=== PATIENT | female | born 1960 | race Two or more races ===

== ENCOUNTER 2017-01-09 21:30 | Inpatient (IN) | payer MEDICAID ==
[~2017-01-09] VITALS: Ht 157.5 cm; Wt 66.7 kg
[2017-01-09] MEDS ORDERED: NITROGLYCERIN 0.4MG TABLET SL SL PRN (23:30)
[2017-01-09 23:38] LABS: BASOPHILS % 1.1 % (0.0-2.0); EOSINOPHILS % 3.7 % (0.0-5.0); HEMOGLOBIN. 15.5 g/dL (12.0-16.0); LYMPHOCYTES % 33.5 % (20.0-50.0); MEAN CORPUSCULAR HEMOGLOBIN 30.4 pg (28.0-32.0); MEAN CORPUSCULAR VOLUME 88.3 fL (81.0-99.0); MEAN PLATELET VOLUME 7.5 fl (7.4-10.4); MONOCYTES % 7.2 % (2.0-8.0); NEUTROPHILS % 54.5 % (40.0-76.0); PLATELET 223 x1000/uL (130-400); RED CELL DISTRIBUTION WIDTH 13.3 % (11.6-14.6)
[2017-01-09 23:53] LABS: CARBON DIOXIDE 27 mEq/L (21-32); CHLORIDE 107 mEq/L (98-107)
[2017-01-09 23:54] LABS: TROPONIN I < 0.02 ng/mL (0.00-0.04)
[2017-01-10] MEDS ORDERED: ASPI-1159 PO (05:07)
[2017-01-10] MEDS ORDERED: SIMV40TA5 PO (05:07)
[2017-01-10] MEDS ORDERED: ASPIRIN 81MG EC TABLET PO SCH (09:00)
[2017-01-10] MEDS ORDERED: REGADENOSON 0.4 MG/5 ML IV ONE (10:45)
[2017-01-10 13:47] VITALS: BP 118/76
[2017-01-10] MEDS ORDERED: ATORVASTATIN CALCIUM 20MG TABLET PO SCH (21:00)
[2017-01-10] MEDS ORDERED: METOPROLOL TARTRATE 25MG TABLET PO SCH (21:00)
== END 2017-01-10 16:00 | disposition home or self-care (01) | DRG 203 ==
LOC: ER 21:42 → 7WST 01-10 01:25 → EDBEDREQTM 01-10 01:34 → EDBEDREQ 01-10 01:34 → ENRESERV 01-10 01:41
PROVIDERS: ADMIT Internal Medicine; ATTEND Internal Medicine
DX: M94.0 Chondrocostal junction syndrome [Tietze] (principal); E78.00 Pure hypercholesterolemia, unspecified; E78.5 Hyperlipidemia, unspecified; F41.9 Anxiety disorder, unspecified; Z79.899 Other long term (current) drug therapy; Z79.82 Long term (current) use of aspirin
CPT/HCPCS: 36415; 71010; 80053; 84484; 85025; 93005; 99285

== ENCOUNTER 2020-05-03 05:30 | Emergency (ER) | payer MEDICAID ==
[~2020-05-03] VITALS: Ht 157.5 cm; Wt 67.0 kg
[~2020-05-03 05:30] MED LIST: ASPI-1497 PO; SIMV-46 PO
[2020-05-03] MEDS ORDERED: ACETAMINOPHEN WITH CODEINE 300/30MG TABLET PO STA (06:26)
[2020-05-03 08:14] LABS: EOSINOPHILS % 4.2 % (0.0-5.0); HEMATOCRIT. 44.3 % (36.0-48.0); HEMOGLOBIN. 15.1 g/dL (12.0-16.0); LYMPHOCYTES % 28.6 % (20.0-50.0); MEAN CORPUSCULAR HEMOGLOBIN 30.3 pg (28.0-32.0); MEAN CORPUSCULAR VOLUME 89.2 fL (81.0-99.0); MEAN PLATELET VOLUME 7.7 fl (7.4-10.4); MONOCYTES % 9.3 % (2.0-8.0); NEUTROPHILS % 56.9 % (40.0-76.0); PLATELET 247 x1000/uL (130-400); RED BLOOD CELL COUNT 4.97 mill/uL (4.2-5.4); RED CELL DISTRIBUTION WIDTH 13.6 % (11.6-14.6)
[2020-05-03 08:20] LABS: CHLORIDE 107 mEq/L (98-107)
[2020-05-03] MEDS ORDERED: MORPHINE SULFATE 10 MG/ML CPJ IM ONE (09:30)
[2020-05-03 10:02] VITALS: BP 123/90
== END 2020-05-03 12:01 | disposition home or self-care (01) ==
LOC: ER 05:30
DX: R07.89 Other chest pain (principal); E78.00 Pure hypercholesterolemia, unspecified; Z79.82 Long term (current) use of aspirin
CPT/HCPCS: 36415; 71045; 80053; 83880; 84484; 85025; 93005; 96372; 99285; J2270